=== PATIENT | male | born 1990 | race Asian ===

== ENCOUNTER 2019-01-19 19:03 | Emergency (ER) | payer OTHER ==
[~2019-01-19] VITALS: Ht 177.8 cm; Wt 93.2 kg
[2019-01-19 19:04] VITALS: BP 155/67
[2019-01-19] MEDS ORDERED: IBUP200C25 PO (19:10)
[2019-01-19] MEDS ORDERED: CYCL5TAB PO (19:10)
[2019-01-19] MEDS ORDERED: ACETAMINOPHEN 500 MG TAB PO ONE (21:30)
--- NOTE | 2019-01-19 22:10 | REPVR ---
PROCEDURE INFORMATION: Exam: CT Lumbar Spine Without Contrast Exam date and time: 01/19/2019 9:27 PM Clinical history: 28 years old, male; Low back pain; Additional info: Back pain with radiculopathy TECHNIQUE: Imaging protocol: Computed tomography images of the lumbar spine without contrast. Radiation optimization: All CT scans at this facility use at least one of these dose optimization techniques: automated exposure control; mA and/or kV adjustment per patient size (includes targeted exams where dose is matched to clinical indication); or iterative reconstruction. COMPARISON: No relevant prior studies available. FINDINGS: Vertebrae: Vertebral body heights are intact. Alignment is maintained. No pars defect is identified. No acute fracture is identified. Discs/Spinal canal/Neural foramina: At L4-5, there appears to be a small disc bulge with mild right neural foraminal narrowing. L5-S1 disc space is mildly narrowed and with apparent small bulge and very mild bilateral neural foraminal narrowing. CT is not optimal for the evaluation of the discs, neural foramina or spinal canal or cord. Soft tissues: There is no significant paraspinal hematoma. The visualized abdominal structures appear grossly unremarkable. IMPRESSION: Apparent small disc displacements as described. The discs, neural foramina and spinal canal could be better evaluated by means of MRI as clinically appropriate. Electronically signed by: Clemente Shine On 01/19/2019 22:10:07 PM
--- NOTE | 2019-01-20 13:42 | ED PDOC ---
Post-Departure Follow-Up ft gee cancino faxed formal report of ct ls spine for fu Celia Perez MD Jan 20, 2019 13:42
== END 2019-01-19 22:44 | disposition home or self-care (01) ==
LOC: M ED 19:03
DX: M51.26 Other intervertebral disc displacement, lumbar region (principal); M51.27 Other intervertebral disc displacement, lumbosacral region; M54.16 Radiculopathy, lumbar region; M54.17 Radiculopathy, lumbosacral region; G89.29 Other chronic pain; F17.200 Nicotine dependence, unspecified, uncomplicated

== ENCOUNTER 2019-04-17 19:25 | Emergency (ER) | payer OTHER ==
[~2019-04-17] VITALS: Ht 177.8 cm; Wt 90.6 kg
[~2019-04-17 19:25] MED LIST: CYCL5TAB PO; IBUP200C25 PO
[2019-04-17] MEDS ORDERED: LEXA1TAB2 PO (19:43)
[2019-04-17] MEDS ORDERED: TRAZ-257 PO (19:43)
[2019-04-17] MEDS ORDERED: CLONI1TA PO (19:43)
[2019-04-17 20:26] LABS: HEMATOCRIT 47.7 % (42.0-52.0); HEMOGLOBIN 16.3 g/dl (13.5-17.5); MEAN CORPUSCULAR HEMOGLOBIN 30.5 pg (27.0-33.0); MEAN CORPUSCULAR HGB CONC 34.2 g/dl (32.0-36.5); MEAN CORPUSCULAR VOLUME 89.3 fl (80.0-96.0); PLATELET COUNT, AUTOMATED 237 10^3/uL (150-450); RED BLOOD COUNT 5.34 10^6/uL (4.30-6.10); WHITE BLOOD COUNT 6.5 10^3/uL (4.0-10.0)
[2019-04-17 20:49] LABS: AMPHETAMINES LEVEL URINE NEGATIVE (NEGATIVE); BARBITURATES URINE NEGATIVE (NEGATIVE); BENZODIAZEPINES URINE NEGATIVE (NEGATIVE); CANNABINOIDS URINE NEGATIVE (NEGATIVE); COCAINE METABOLITE URINE NEGATIVE (NEGATIVE); METHADONE URINE NEGATIVE (NEGATIVE); OPIATES URINE NEGATIVE (NEGATIVE); PHENCYCLIDINE URINE NEGATIVE (NEGATIVE)
[2019-04-17 20:58] LABS: ACETAMINOPHEN LEVEL < 2.0 UG/ML (10.0-30.0); ALBUMIN 4.3 GM/DL (3.2-5.2); ALT/SGPT 30 U/L (12-78); BILIRUBIN,DIRECT 0.3 MG/DL (0.0-0.2); BILIRUBIN,TOTAL 1.3 MG/DL (0.2-1.0); BLOOD UREA NITROGEN 8 MG/DL (7-18); CALCIUM LEVEL 8.1 MG/DL (8.5-10.1); CARBON DIOXIDE LEVEL 25 MEQ/L (21-32); CHLORIDE LEVEL 106 MEQ/L (98-107); CREATININE FOR GFR 0.99 MG/DL (0.70-1.30); ETHYL ALCOHOL (ETHANOL) 0.184 % (0.000-0.010); GLOMERULAR FILTRATION RATE > 60.0 (>60); GLUCOSE, FASTING 105 MG/DL (70-100); POTASSIUM SERUM 3.6 MEQ/L (3.5-5.1); SALICYLATE LEVEL < 1.7 MG/DL (5.0-30.0); SODIUM LEVEL 140 MEQ/L (136-145); TOTAL PROTEIN 7.6 GM/DL (6.4-8.2)
[2019-04-18 02:00] VITALS: BP 126/62
== END 2019-04-18 01:59 | disposition home or self-care (01) ==
LOC: M ED 19:25
DX: F43.0 Acute stress reaction (principal); F10.129 Alcohol abuse with intoxication, unspecified; F41.1 Generalized anxiety disorder; F32.9 Major depressive disorder, single episode, unspecified; F17.200 Nicotine dependence, unspecified, uncomplicated; Z79.899 Other long term (current) drug therapy
CPT/HCPCS: 80048; 80076; 80307; 84443; 85027; 99284; G0480